=== PATIENT | female | born 1940 | race Caucasian/White ===

== ENCOUNTER 2024-06-05 11:07 | Inpatient (IN) | payer MEDICARE, MEDICAID ==
[~2024-06-05] VITALS: Ht 157.5 cm; Wt 65.8 kg
[2024-06-05 11:14] VITALS: O2SAT 99
[2024-06-05 11:43] LABS: BASOPHILS % 0.5 % (0.0-2.0); EOSINOPHILS % 2.2 % (0.0-5.0); HEMATOCRIT. 37.5 % (36.0-48.0); HEMOGLOBIN. 12.5 g/dL (12.0-16.0); MEAN CORPUSCULAR HEMOGLOBIN 29.9 pg (28.0-32.0); MEAN CORPUSCULAR HGB CONC 33.3 g/dL (31.0-37.0); MEAN CORPUSCULAR VOLUME 89.8 fL (81.0-99.0); MEAN PLATELET VOLUME 7.6 fl (7.4-10.4); MONOCYTES % 9.1 % (2.0-8.0); NEUTROPHILS % 62.2 % (40.0-76.0); PLATELET 230 x1000/uL (130-400); RED BLOOD CELL COUNT 4.18 mill/uL (4.2-5.4); RED CELL DISTRIBUTION WIDTH 13.4 % (11.6-14.6); WHITE BLOOD COUNT 6.5 x1000/uL (4.5-11.0)
[2024-06-05 11:50] LABS: CHLORIDE 108 mEq/L (98-107); POTASSIUM 4.2 mEq/L (3.5-5.1); SODIUM 139 mEq/L (136-145)
[2024-06-05 11:51] LABS: CARBON DIOXIDE 25 mEq/L (21-32)
[2024-06-05 11:52] LABS: CALCIUM 9.9 mg/dL (8.7-10.4)
[2024-06-05 11:56] LABS: CREATININE 0.6 mg/dL (0.6-1.0); GLUCOSE 168 mg/dL (70-105); PROTHROMBIN TIME 10.8 sec (9.6-11.0); UREA NITROGEN BLOOD 6 mg/dL (9-23)
[2024-06-05 12:39] LABS: TROPONIN I HIGH SENSITIVITY 40 ng/L (3.0-34)
[2024-06-05 13:00] LABS: CLARITY URINE CLEAR (CLEAR); COLOR URINE YELLOW (YELLOW); GLUCOSE URINE NEGATIVE (NEGATIVE); KETONES URINE NEGATIVE (NEGATIVE); NITRITE URINE NEGATIVE (NEGATIVE); OCCULT BLOOD URINE NEGATIVE (NEGATIVE); PROTEIN URINE NEGATIVE (NEGATIVE); SPECIFIC GRAVITY URINE 1.009 (1.005-1.030)
[2024-06-05 13:01] LABS: LEUKOCYTE ESTERASE URINE NEGATIVE (NEGATIVE); UROBILINOGEN URINE 0.2 E.U./dL (0.2-1.0)
[2024-06-05] MEDS ORDERED: HYDRALAZINE HCL 50MG TABLET PO ONE (13:45)
[2024-06-05] MEDS: HYDRALAZINE 20MG/ML VIAL IV ONE (15:00)
[2024-06-05] MEDS ORDERED: ONDANSETRON HCL 4MG/2ML INJ IV PRN (16:15)
[2024-06-05] MEDS ORDERED: DOCUSATE SODIUM 100MG CAPSULE PO PRN (16:15)
[2024-06-05] MEDS ORDERED: MAGNESIUM/ALUMINUM HYDROXIDE/SIMETHICONE 30ML UDC PO PRN (16:15)
[2024-06-05] MEDS ORDERED: ZOLPIDEM TARTRATE 5MG TABLET PO PRN (16:15)
[2024-06-05] MEDS ORDERED: CLONIDINE 0.1MG TABLET PO PRN (16:15)
[2024-06-05] MEDS ORDERED: NITROGLYCERIN 0.4MG TABLET SL SL PRN (16:15)
[2024-06-05] MEDS ORDERED: KETOROLAC 15MG/ML VIAL IV PRN (16:15)
[2024-06-05] MEDS ORDERED: ACETAMINOPHEN 325MG TABLET PO PRN ×2 (16:15)
[2024-06-05] MEDS ORDERED: DEXTROSE 50% WATER 50ML SYRINGE IV PRN (16:15)
[2024-06-05] MEDS ORDERED: GUAIFENESIN 200MG/10ML SUGAR FREE UDC PO PRN (16:15)
[2024-06-05] MEDS ORDERED: IPRATROPIUM/ALBUTEROL 0.5-3(2.5)MG/3ML NEB NEB PRN (16:15)
[2024-06-05 16:34] LABS: VITAMIN B12 SERUM 491 pg/mL (211-911)
[2024-06-05 16:35] LABS: T4 FREE 0.91 ng/dL (0.89-1.76); THYROID STIMULATING HORMONE 3.1 uIU/mL (0.55-4.78)
[2024-06-05] MEDS: NIFEDIPINE XL 60MG TAB PO SCH (16:46)
[2024-06-05] MEDS: LOSARTAN 50 MG TABLET PO SCH (16:47)
[2024-06-05] MEDS: NITROGLYCERIN OINT 1GM/INCH UDPKT TD SCH (16:47)
[2024-06-05] MEDS: ENOXAPARIN 40MG/0.4ML SYR SUBCUT SCH (16:48)
[2024-06-05] MEDS: BLOOD SUGAR DIAGNOSTIC STRIP TEST SCH (17:29)
[2024-06-05] MEDS: INSULIN LISPRO 100 UNITS/ML SUBCUT SCH (17:50)
[2024-06-05 22:23] LABS: CREATINE KINASE MB FRACTION 2.6 ng/mL (0.5-3.6)
[2024-06-06] MEDS: SPIRONOLACTONE 25MG TABLET PO SCH (00:31)
[2024-06-06] MEDS: FUROSEMIDE 40MG/4ML VIAL IVP SCH (00:31)
[2024-06-06] MEDS: FAMOTIDINE 20MG TABLET PO SCH (00:36)
[2024-06-06 07:15] LABS: CHLORIDE 103 mEq/L (98-107); POTASSIUM 3.7 mEq/L (3.5-5.1); SODIUM 136 mEq/L (136-145)
[2024-06-06 07:16] LABS: CALCIUM 9.9 mg/dL (8.7-10.4); CARBON DIOXIDE 25 mEq/L (21-32)
[2024-06-06 07:21] LABS: CREATININE 0.6 mg/dL (0.6-1.0); GLUCOSE 196 mg/dL (70-105); UREA NITROGEN BLOOD 7 mg/dL (9-23)
[2024-06-06 07:23] LABS: CREATINE KINASE MB FRACTION 2.4 ng/mL (0.5-3.6); PHOSPHORUS 3.9 mg/dL (2.5-4.9)
[2024-06-06 07:29] LABS: BASOPHILS % 0.3 % (0.0-2.0); EOSINOPHILS % 0.3 % (0.0-5.0); HEMATOCRIT. 34.3 % (36.0-48.0); HEMOGLOBIN. 11.6 g/dL (12.0-16.0); LYMPHOCYTES % 14.7 % (20.0-50.0); MEAN CORPUSCULAR HGB CONC 33.8 g/dL (31.0-37.0); MEAN PLATELET VOLUME 8.3 fl (7.4-10.4); MONOCYTES % 6.6 % (2.0-8.0); NEUTROPHILS % 78.1 % (40.0-76.0); PLATELET 209 x1000/uL (130-400); RED BLOOD CELL COUNT 3.85 mill/uL (4.2-5.4); RED CELL DISTRIBUTION WIDTH 13.7 % (11.6-14.6); WHITE BLOOD COUNT 8.2 x1000/uL (4.5-11.0)
[2024-06-06] MEDS: ASPIRIN 325MG EC TABLET PO SCH (09:19)
[2024-06-06 10:00] VITALS: BP 111/63; PULSE 89; RESP 20; TEMP 36.6696; O2SAT 99
[2024-06-06 12:00] VITALS: BP 104/52; PULSE 84; RESP 20; TEMP 36.6696; O2SAT 98
[2024-06-06 15:34] VITALS: BP 111/85; PULSE 84; RESP 18; TEMP 36.696
[2024-06-06 16:00] VITALS: BP 105/52; PULSE 80; RESP 20; TEMP 36.6696; O2SAT 100
[2024-06-06] MEDS ORDERED: PNEUMOCOCCAL 23-VAL P-SAC VAC 0.5 ML IM ONE (16:30)
[2024-06-06 20:41] VITALS: BP 107/51; PULSE 80; RESP 18; TEMP 35.61396; O2SAT 97
[2024-06-07 00:17] VITALS: BP 131/56; PULSE 88; RESP 18; TEMP 36.44736; O2SAT 99
[2024-06-07 04:50] VITALS: BP 123/56; PULSE 98; RESP 18; TEMP 36.50292; O2SAT 98
[2024-06-07 07:55] VITALS: BP 121/61; PULSE 99; RESP 18; TEMP 36.61404; O2SAT 98
== END 2024-06-07 09:18 | disposition left against medical advice (07) | DRG 281 ==
LOC: ER 11:07 → EDBEDREQ 13:11 → 5WST 13:57 → EDBEDREQTM 14:06 → EDBEDREQ 14:06 → 8WST 06-06 09:59
PROVIDERS: ADMIT Internal Medicine; ATTEND Internal Medicine
DX: I21.4 Non-ST elevation (NSTEMI) myocardial infarction (principal); I16.1 Hypertensive emergency; I50.32 Chronic diastolic (congestive) heart failure; I11.0 Hypertensive heart disease with heart failure; E11.9 Type 2 diabetes mellitus without complications; Z53.29 Procedure and treatment not carried out because of patient's decision for other reasons; Z79.4 Long term (current) use of insulin
CPT/HCPCS: 36415; 71045; 80048; 80061; 81003; 82550; 82553; 82607; 82962; 83036; 83735; 83880; 84100; 84439; 84443; 84484; 85025; 93005; 93971; 99291; J0360; J1650; J1815; J1940